=== PATIENT | male | born 1950 | race Caucasian/White ===

== ENCOUNTER 2016-11-13 10:54 | Emergency (ER) | payer MEDICARE ==
[~2016-11-13] VITALS: Ht 170.2 cm; Wt 70.2 kg
[~2016-11-13 10:54] MED LIST: ATARAX,VISTARIL25 MG PO; METFORMIN HCL500 M1 PO; MOTRIN800 MG PO; PRAVASTATIN SOD40 MG PO; VERAPAMIL HCL180 MG PO
[2016-11-13] MEDS ORDERED: ASPIR 8181 M1 PO (12:12)
[2016-11-13 13:29] LABS: ADD MIUA? NO; BILIRUBIN NEGATIVE; BLOOD NEGATIVE; COLOR PALE STRAW ((YELLOW)); GLUCOSE (STRIP) NEGATIVE; KETONES NEGATIVE; LEUKOCYTES NEGATIVE; NITRITE NEGATIVE; PROTEIN (STRIP) NEGATIVE; SPECIFIC GRAVITY 1.011 (1.000-1.030); UCUL ADDED? NO; UROBILINOGEN 0.2 MG/DL (0.2-1.0)
[2016-11-13 17:57] LABS: HEMATOCRIT 47.2 % (38.0-50.0); MCH 31.3 PG (29.0-34.0); MCHC 33.9 G/DL (30.0-36.0); MCV 92.4 FL (86-99); MEAN PLAT.VOLUME 10.4 uM^3 (9.0-12.4); PLATELET COUNT 262 K/uL (156-360); RBC DIS.WIDTH-CV 13.2 % (11.8-14.6); RBC DIS.WIDTH-SD 43.4 % (39-53); RED BLOOD COUNT 5.11 M/uL (4.00-5.50); WHITE BLOOD COUNT 10.9 K/uL (4.1-10.2)
[2016-11-13 18:04] LABS: CHLORIDE 104 mEq/L (99-109); SODIUM 140 mEq/L (136-147)
[2016-11-13 18:07] LABS: GLUCOSE 87 mg/dL (70-99)
[2016-11-13 18:08] LABS: ANION GAP 11 MEQ/L (2-14)
[2016-11-13 18:09] LABS: TOTAL BILIRUBIN 0.3 mg/dL (0.0-1.0)
[2016-11-13 18:10] LABS: ALKALINE PHOSPHATASE 80 IU/L (3-129); GFR ESTIMATE (CALCULATED) > 59 mL/min/
[2016-11-13 18:11] LABS: UREA NITROGEN (BUN) 16 mg/dL (9-23)
[2016-11-13 20:47] VITALS: BP 163/70
== END 2016-11-13 20:47 | disposition home or self-care (01) ==
LOC: EME 10:54
PROVIDERS: Nurse Practitioner Family
DX: K40.90 Unilateral inguinal hernia, without obstruction or gangrene, not specified as recurrent (principal); M25.552 Pain in left hip; I10 Essential (primary) hypertension; E78.5 Hyperlipidemia, unspecified; E11.9 Type 2 diabetes mellitus without complications; F17.200 Nicotine dependence, unspecified, uncomplicated
CPT/HCPCS: 73502; 74177; 76882; 80053; 81003; 85027; 99281; 99283

== ENCOUNTER 2016-11-27 12:38 | Day surgery (SDC) | payer MEDICARE ==
[~2016-11-27] VITALS: Ht 172.7 cm; Wt 70.2 kg
[~2016-11-27 12:38] MED LIST changes: +ASPIR 8181 M1 PO; +TYLENOL EXTRA500 MG PO
[2016-11-27 13:07] LABS: POINT-OF-CARE METER ID UU14174212
[2016-11-27 13:13] VITALS: BP 136/76
[2016-11-27 13:47] LABS: PROTHROMBIN TIME 10.2 (9.2-11.2)
[2016-11-27 14:17] LABS: METH RESISTANT S AUREUS PCR NEGATIVE (NEGATIVE)
[2016-11-27 14:18] LABS: PROBE CHECK PASS; SPECIMEN PROCESSING CONTROL PASS
[2016-11-27] MEDS ORDERED: NORCO 5/3251 TABLET PO (17:36)
[2016-11-27] MEDS ORDERED: COLACE100 MG PO (17:36)
[2016-11-27 18:10] LABS: POINT-OF-CARE METER ID UU13113675
[2016-11-27 19:10] VITALS: BP 158/72
[2016-11-27 20:10] VITALS: BP 126/76
== END 2016-11-27 20:20 | disposition home or self-care (01) ==
LOC: SDC 12:38
PROVIDERS: Thoracic Surgery (Cardiothoracic Vascular Surgery)
PROC: 0YQ60ZZ Repair Left Inguinal Region, Open Approach (ICD-10-PCS; principal; 2016-11-27)
DX: K40.90 Unilateral inguinal hernia, without obstruction or gangrene, not specified as recurrent (principal); I10 Essential (primary) hypertension; E11.9 Type 2 diabetes mellitus without complications
CPT/HCPCS: 82948; 85610; 87641; 88302; 88304; C1781; J0690; J0696; J1170; J3010; J7050

== ENCOUNTER 2017-01-07 04:06 | Inpatient (IN) | payer MEDICARE ==
[2017-01-07] VITALS (20 sets, daily range): BP systolic 0–159; BP diastolic 0–89
[~2017-01-07] VITALS: Ht 172.7 cm; Wt 70.4 kg
[~2017-01-07 04:06] MED LIST changes: +COLACE100 MG PO; +NORCO 5/3251 TABLET PO
[2017-01-07 04:25] LABS: BASOPHIL COUNT 0.1 K/uL (0-0.1); EOSINOPHIL (%) 3.4 % (0-5); EOSINOPHIL COUNT 0.4 K/uL (0-0.3); HEMATOCRIT 43.9 % (38.0-50.0); IMMATURE GRANULOCYTE (%) 0.5 % (0.0-0.7); IMMATURE GRANULOCYTE COUNT 0.1 K/uL; INSTRUMENT ABS NEUTROPHIL CT 6.3 K/uL; LYMPHOCYTE COUNT 2.8 K/uL (1.0-2.8); MCH 31.1 PG (29.0-34.0); MCV 94.2 FL (86-99); MONOCYTE (%) 11.1 % (3-12); MONOCYTE COUNT 1.2 K/uL (0-0.8); NEUTROPHIL (%) 58.2 % (45-76); NEUTROPHIL COUNT 6.3 K/uL (1.8-6.4); RBC DIS.WIDTH-SD 44.6 % (39-53); RED BLOOD COUNT 4.66 M/uL (4.00-5.50); WHITE BLOOD COUNT 10.8 K/uL (4.1-10.2)
[2017-01-07 04:37] LABS: PROTHROMBIN TIME 10.5 (9.2-11.2); PTT 24.4 (25-32)
[2017-01-07 04:38] LABS: AMYLASE 39 IU/L (1-118); CHLORIDE 102 mEq/L (99-109); POTASSIUM 4.3 mEq/L (3.7-5.4); SODIUM 139 mEq/L (136-147)
[2017-01-07 04:40] LABS: GLUCOSE 119 mg/dL (70-99)
[2017-01-07 04:41] LABS: ANION GAP 13 MEQ/L (2-14)
[2017-01-07 04:43] LABS: GFR ESTIMATE (CALCULATED) > 59 mL/min/; SERUM ETHYL ALCOHOL < 10 mg/dL
[2017-01-07 04:44] LABS: UREA NITROGEN (BUN) 22 mg/dL (9-23)
[2017-01-07 04:46] LABS: LIPASE 34 U/L (1.0-51.0)
[2017-01-07 05:17] LABS: TROP-I INTERPRETATION NEGATIVE; TROPONIN-I 0.03 ng/mL (0.0-0.30)
[2017-01-07 07:19] LABS: MEAN PLAT.VOLUME 11.1 uM^3 (9.0-12.4); PLAT.SUFFICIENCY DECREASED; PLATELET COUNT 108 K/uL (156-360)
[2017-01-07 08:19] LABS: METH RESISTANT S AUREUS PCR NEGATIVE (NEGATIVE)
[2017-01-07 08:47] LABS: PROBE CHECK PASS; SPECIMEN PROCESSING CONTROL PASS
[2017-01-07 19:00] LABS: BASOPHIL COUNT 0.1 K/uL (0-0.1); EOSINOPHIL (%) 2.7 % (0-5); EOSINOPHIL COUNT 0.4 K/uL (0-0.3); HEMATOCRIT 45.1 % (38.0-50.0); IMMATURE GRANULOCYTE (%) 0.7 % (0.0-0.7); IMMATURE GRANULOCYTE COUNT 0.1 K/uL; INSTRUMENT ABS NEUTROPHIL CT 8.4 K/uL; LYMPHOCYTE COUNT 2.9 K/uL (1.0-2.8); MCH 30.7 PG (29.0-34.0); MCV 92.8 FL (86-99); MEAN PLAT.VOLUME 10.9 uM^3 (9.0-12.4); MONOCYTE (%) 8.8 % (3-12); MONOCYTE COUNT 1.1 K/uL (0-0.8); NEUTROPHIL (%) 64.8 % (45-76); NEUTROPHIL COUNT 8.4 K/uL (1.8-6.4); RBC DIS.WIDTH-CV 13.1 % (11.8-14.6); RBC DIS.WIDTH-SD 45.1 % (39-53); RED BLOOD COUNT 4.86 M/uL (4.00-5.50)
[2017-01-07 19:04] LABS: PLATELET COUNT 317 K/uL (156-360)
[2017-01-07 22:21] LABS: TROP-I INTERPRETATION POSITIVE; TROPONIN-I 5.12 ng/mL (0.0-0.30)
[2017-01-08] VITALS (13 sets, daily range): BP systolic 94–140; BP diastolic 40–70
[2017-01-08 02:05] LABS: BASOPHIL COUNT 0.1 K/uL (0-0.1); EOSINOPHIL (%) 3.1 % (0-5); EOSINOPHIL COUNT 0.4 K/uL (0-0.3); HEMATOCRIT 43.5 % (38.0-50.0); IMMATURE GRANULOCYTE (%) 0.7 % (0.0-0.7); IMMATURE GRANULOCYTE COUNT 0.1 K/uL; INSTRUMENT ABS NEUTROPHIL CT 8.5 K/uL; LYMPHOCYTE COUNT 2.7 K/uL (1.0-2.8); MCHC 33.6 G/DL (30.0-36.0); MCV 92.4 FL (86-99); MEAN PLAT.VOLUME 10.4 uM^3 (9.0-12.4); MONOCYTE (%) 12.2 % (3-12); MONOCYTE COUNT 1.6 K/uL (0-0.8); NEUTROPHIL (%) 63.4 % (45-76); NEUTROPHIL COUNT 8.5 K/uL (1.8-6.4); PLATELET COUNT 302 K/uL (156-360); RBC DIS.WIDTH-SD 43.9 % (39-53); RED BLOOD COUNT 4.71 M/uL (4.00-5.50); WHITE BLOOD COUNT 13.4 K/uL (4.1-10.2)
[2017-01-08 02:15] LABS: CHLORIDE 106 mEq/L (99-109); POTASSIUM 4.6 mEq/L (3.7-5.4); SODIUM 138 mEq/L (136-147)
[2017-01-08 02:17] LABS: GLUCOSE 105 mg/dL (70-99)
[2017-01-08 02:19] LABS: ANION GAP 8 MEQ/L (2-14)
[2017-01-08 02:21] LABS: GFR ESTIMATE (CALCULATED) > 59 mL/min/
[2017-01-08 02:22] LABS: UREA NITROGEN (BUN) 17 mg/dL (9-23)
[2017-01-08 02:27] LABS: TROP-I INTERPRETATION POSITIVE; TROPONIN-I 3.29 ng/mL (0.0-0.30)
[2017-01-08 02:54] LABS: HDL CHOLESTEROL 26 MG/DL (Desirable>=40); LDL CHOLESTEROL 89 mg/dL (Desirable<100); NON-HDL CHOLESTEROL 112 mg/dL (Desirable<160); TOTAL CHOLESTEROL 138 mg/dL (Desirable<200); TRIGLYCERIDES 113 MG/DL (Normal: <150)
[2017-01-08 08:07] LABS: Estimated Average Glucose 126 mg/dL (70-123)
[2017-01-08 09:16] LABS: TROP-I INTERPRETATION POSITIVE; TROPONIN-I 2.04 ng/mL (0.0-0.30)
[2017-01-09] VITALS: BP 99/39
[2017-01-09 04:00] VITALS: BP 123/56
[2017-01-09 08:00] VITALS: BP 133/70
[2017-01-09] MEDS ORDERED: NICOTINE PATCH1 EAC1 TD (09:11)
[2017-01-09] MEDS ORDERED: NITROSTAT0.4 MG SL (09:12)
[2017-01-09] MEDS ORDERED: BRILINTA90 MG PO (09:12)
[2017-01-09] MEDS ORDERED: ATORVASTATIN CA80 MG PO (09:12)
[2017-01-09] MEDS ORDERED: LOPRESSOR25 MG PO (09:13)
[2017-01-09] MEDS ORDERED: LISINOPRIL2.5 MG PO (09:13)
[2017-01-09 12:00] VITALS: BP 107/77
== END 2017-01-09 12:00 | disposition home or self-care (01) | DRG 247 ==
LOC: EME → EDBD 04:06 → EME 04:06 → CATH 04:20 → 4WEST 05:55
PROVIDERS: Emergency Medicine; Internal Medicine Cardiovascular Disease
DX: I21.19 ST elevation (STEMI) myocardial infarction involving other coronary artery of inferior wall (principal); I25.10 Atherosclerotic heart disease of native coronary artery without angina pectoris; I25.84 Coronary atherosclerosis due to calcified coronary lesion; I47.2 Ventricular tachycardia; I10 Essential (primary) hypertension; E78.5 Hyperlipidemia, unspecified; R73.02 Impaired glucose tolerance (oral); F17.210 Nicotine dependence, cigarettes, uncomplicated; Z71.6 Tobacco abuse counseling
CPT/HCPCS: 80048; 80061; 81003; 82150; 83036; 83690; 84484; 85025; 85025 91; 85347; 85610; 85730; 86850; 86900; 86901; 87641; 93005; C1725; C1769; C1874; C1887; G0480; J0461; J1644; J2250; J2405; J3010; J3246; J7030

== ENCOUNTER 2017-05-16 09:03 | Emergency (ER) | payer OTHER ==
[~2017-05-16] VITALS: Ht 172.7 cm; Wt 67.7 kg
[~2017-05-16 09:03] MED LIST changes: +ATORVASTATIN CA80 MG PO; +BRILINTA90 MG PO; +LISINOPRIL2.5 MG PO; +LOPRESSOR25 MG PO; +NICOTINE PATCH1 EAC1 TD; +NITROSTAT0.4 MG SL
[2017-05-16] MEDS ORDERED: PLAVIX75 MG PO (10:04)
[2017-05-16] MEDS ORDERED: AMITRIPTYLINE H10 MG PO (10:05)
[2017-05-16 10:51] VITALS: BP 136/76
== END 2017-05-16 11:28 | disposition home or self-care (01) ==
LOC: EME 09:03
DX: R04.0 Epistaxis (principal); I10 Essential (primary) hypertension; E78.5 Hyperlipidemia, unspecified; E11.9 Type 2 diabetes mellitus without complications; I25.2 Old myocardial infarction; Z95.5 Presence of coronary angioplasty implant and graft; Z79.82 Long term (current) use of aspirin; Z79.02 Long term (current) use of antithrombotics/antiplatelets
CPT/HCPCS: 99281; 99283

== ENCOUNTER 2018-03-19 10:32 | Emergency (ER) | payer OTHER ==
[~2018-03-19] VITALS: Ht 172.7 cm; Wt 70.9 kg
[~2018-03-19 10:32] MED LIST changes: +AMITRIPTYLINE H10 MG PO; +PLAVIX75 MG PO
[2018-03-19] MEDS ORDERED: ULTRAM50 MG PO (14:10)
[2018-03-19] MEDS ORDERED: FLEXERIL10 MG PO (14:10)
[2018-03-19 14:45] VITALS: BP 125/66
== END 2018-03-19 14:46 | disposition home or self-care (01) ==
LOC: EME 10:32
DX: S39.011A Strain of muscle, fascia and tendon of abdomen, initial encounter (principal); I10 Essential (primary) hypertension; E11.9 Type 2 diabetes mellitus without complications; E78.5 Hyperlipidemia, unspecified; I25.2 Old myocardial infarction; F17.200 Nicotine dependence, unspecified, uncomplicated; Z79.82 Long term (current) use of aspirin; Z79.02 Long term (current) use of antithrombotics/antiplatelets; Z87.19 Personal history of other diseases of the digestive system; Z85.828 Personal history of other malignant neoplasm of skin; Z98.890 Other specified postprocedural states; Z90.81 Acquired absence of spleen

== ENCOUNTER 2018-04-14 10:26 | Emergency (ER) | payer OTHER ==
[~2018-04-14] VITALS: Ht 172.7 cm; Wt 68.5 kg
[~2018-04-14 10:26] MED LIST changes: +FLEXERIL10 MG PO; +ULTRAM50 MG PO
[2018-04-14 11:44] LABS: MCH 32.7 PG (29.0-34.0); MCHC 34.9 G/DL (30.0-36.0); MCV 93.7 FL (86-99); PLATELET COUNT 306 K/uL (156-360); RBC DIS.WIDTH-CV 13.4 % (11.8-14.6); RBC DIS.WIDTH-SD 46.5 % (39-53); RED BLOOD COUNT 4.59 M/uL (4.00-5.50); WHITE BLOOD COUNT 9.4 K/uL (4.1-10.2)
[2018-04-14 11:54] LABS: PTT 33.1 SEC (25-37)
[2018-04-14 11:55] LABS: CHLORIDE 104 mEq/L (99-109); POTASSIUM 4.3 mEq/L (3.7-5.4); SODIUM 138 mEq/L (136-147)
[2018-04-14 11:56] LABS: GLUCOSE 99 mg/dL (70-99)
[2018-04-14 12:00] LABS: GFR ESTIMATE (CALCULATED) > 59 mL/min/ (58.99-99999)
[2018-04-14 12:01] LABS: UREA NITROGEN (BUN) 17 mg/dL (9-23)
[2018-04-14 12:17] LABS: APPEARANCE CLEAR ((CLEAR)); BILIRUBIN NEGATIVE; BLOOD NEGATIVE; COLOR YELLOW ((YELLOW)); GLUCOSE (STRIP) NEGATIVE; KETONES NEGATIVE; LEUKOCYTES NEGATIVE; NITRITE NEGATIVE; PROTEIN (STRIP) NEGATIVE; SPECIFIC GRAVITY 1.009 (1.000-1.030); UROBILINOGEN 0.2 MG/DL (0.2-1.0)
[2018-04-14] MEDS ORDERED: ULTRAM50 MG PO (13:20)
[2018-04-14 14:39] LABS: ERTH.SED.RATE 33 MM/HR (0-20)
[2018-04-14 14:44] LABS: C-REACTIVE PROTEIN 20.6 MG/L (0-10)
[2018-04-14 16:23] VITALS: BP 139/72
== END 2018-04-14 16:24 | disposition home or self-care (01) ==
LOC: EME 10:26
PROVIDERS: Nurse Practitioner Family
DX: R19.04 Left lower quadrant abdominal swelling, mass and lump (principal); M87.852 Other osteonecrosis, left femur; F17.200 Nicotine dependence, unspecified, uncomplicated; I10 Essential (primary) hypertension; E78.5 Hyperlipidemia, unspecified; E11.9 Type 2 diabetes mellitus without complications; I25.2 Old myocardial infarction; Z90.81 Acquired absence of spleen; Z85.828 Personal history of other malignant neoplasm of skin; Z79.82 Long term (current) use of aspirin; Z79.02 Long term (current) use of antithrombotics/antiplatelets
CPT/HCPCS: 73502; 74177; 76882; 80048; 81003; 85027; 85610; 85651; 85730; 86140; 99281; 99285